=== PATIENT | female | born 1970 | race Caucasian/White ===

== ENCOUNTER 2016-12-31 00:06 | Emergency (ER) | payer OTHER ==
[2016-12-31] MEDS ORDERED: ONDANSETRON HCL 4 MG/2 ML VIAL IV PUSH ONE (00:30)
[2016-12-31] MEDS ORDERED: SODIUM CHLOR 0.9% 1000 ML INJ 1,000 ML IV ONE (00:30)
--- NOTE | 2016-12-31 00:32 | PD ---
HPI Chief Complaint: Alcohol/Drug Intoxication Time Seen by Provider: 00:18 Travel History International Travel<30 days: No Contact w/Intl Traveler<30days: No History of Present Illness HPI Patient comes in by EMS for evaluation after being found alcohol intoxication. Patient reportedly is attending a conference at a local hotel and was found by a friend to going in and out of consciousness. Patient denies any drug use or medical concerns at this time. Patient states that she just drank tonight. Patient denies a chest pain, shortness of breath, nausea, vomiting, abdominal pain, or headaches. Denies anything making this better or worse. Patient is obviously intoxicated thus making her poor historian at the moment. [facility] Past Medical History Depression: Yes ?: Unknown Social History Alcohol Use: Yes Tobacco Use: No Substance Use: No Allergies-Medications (Allergen,Severity, Reaction): Coded Allergies: No Known Allergies (Unverified , 12/31/16) Review of Systems ROS Limitations: Intoxication Except as stated in HPI: all other systems reviewed are Neg Physical Exam Exam Limitations: Intoxication Narrative GENERAL: Well-developed, well nourished, in no acute distress, and non-ill appearing. I'll call noted on breath. SKIN: Focused skin assessment warm and dry. HEAD: Atraumatic. Normocephalic. EYES: Pupils equal and round. EOMI. No scleral icterus. No injection or drainage. ENT: No nasal bleeding or discharge. Mucous membranes pink and moist. NECK: Trachea midline. No JVD. Supple. No nuclear rigidity. CARDIOVASCULAR: Regular rate and rhythm. No murmur appreciated. RESPIRATORY: No accessory muscle use. No respiratory distress. Clear to auscultation. Breath sounds equal bilaterally. MUSCULOSKELETAL: No obvious deformities. No clubbing. No cyanosis. No edema. Full range of motion. NEUROLOGICAL: Awake and alert. No obvious cranial nerve deficits. Motor grossly within normal limits. Normal speech. PSYCHIATRIC: Appropriate mood and affect. Data Data Last Documented VS Vital Signs Date Time Temp Pulse Resp B/P (MAP) Pulse Ox O2 Delivery O2 Flow Rate FiO2 12/31/16 04:52 12/31/16 04:36 96 Room Air 12/31/16 04:30 72 18 Orders Orders Complete Blood Count With Diff (12/31/16 00:19) Basic Metabolic Panel (Bmp) (12/31/16 00:19) Urinalysis - C+S If Indicated (12/31/16 00:19) Oximetry (12/31/16 00:19) Iv Access Insert/Monitor (12/31/16 00:) Ecg Monitoring (12/31/16 00:19) Drug Screen, Random Urine (12/31/16 00:19) Alcohol (Ethanol) (12/31/16 00:19) Ondansetron Inj (Zofran Inj) (12/31/16 00:30) Sodium Chlor 0.9% 1000 Ml Inj (Ns 1000 M (12/31/16 00:30) Ed Discharge Order (12/31/16 04:48) Labs Laboratory Tests Test 12/31/16 00:30 White Blood Count 7.4 TH/MM3 Red Blood Count 4.31 MIL/MM3 Hemoglobin 14.7 GM/DL Hematocrit 42.8 % Mean Corpuscular Volume 99.3 FL Mean Corpuscular Hemoglobin 34.1 PG Mean Corpuscular Hemoglobin Concent 34.4 % Red Cell Distribution Width 13.3 % Platelet Count 281 TH/MM3 Mean Platelet Volume 8.3 FL Neutrophils (%) (Auto) 60.2 % Lymphocytes (%) (Auto) 26.0 % Monocytes (%) (Auto) 10.5 % Eosinophils (%) (Auto) 2.3 % Basophils (%) (Auto) 1.0 % Neutrophils # (Auto) 4.5 TH/MM3 Lymphocytes # (Auto) 1.9 TH/MM3 Monocytes # (Auto) 0.8 TH/MM3 Eosinophils # (Auto) 0.2 TH/MM3 Basophils # (Auto) 0.1 TH/MM3 CBC Comment DIFF FINAL Differential Comment Urine Color COLORLESS Urine Turbidity CLEAR Urine pH 5.0 Urine Specific [place] 1.003 Urine Protein NEG mg/dL Urine Glucose (UA) NEG mg/dL Urine Ketones NEG mg/dL Urine Occult Blood NEG Urine Nitrite NEG Urine Bilirubin NEG Urine Urobilinogen LESS THAN 2.0 MG/DL Urine Leukocyte Esterase NEG Urine WBC LESS THAN 1 /hpf Urine Bacteria RARE /hpf Microscopic Urinalysis Comment CULT NOT INDICATED Blood Urea Nitrogen 11 MG/DL Creatinine 0.81 MG/DL Random Glucose 86 MG/DL Calcium Level 8.3 MG/DL Sodium Level 143 MEQ/L Potassium Level 3.9 MEQ/L Chloride Level 110 MEQ/L Carbon Dioxide Level 22.7 MEQ/L Anion Gap 10 MEQ/L Estimat Glomerular Filtration Rate 75 ML/MIN Urine Opiates Screen NEG Urine Barbiturates Screen NEG Urine Amphetamines Screen NEG Urine Benzodiazepines Screen NEG Urine Cocaine Screen NEG Urine Cannabinoids Screen NEG Ethyl Alcohol Level 290 MG/DL MDM Medical Decision Making Medical Screen Exam Complete: Yes Emergency Medical Condition: Yes Differential Diagnosis Alcohol intoxication, metabolic disturbance, UTI, substance abuse, dehydration, other Narrative Course Patient was seen and examined. Patient was placed on cardiac monitoring and IV was established. Laboratory studies were obtained and reviewed. Patient is given IV Zofran and a liter of fluid. Patient was monitored in the emergency department. After being monitored in the emergency department for over 4 hours patient is requesting to be discharged, so that she can go back to her hotel where she can finish sleeping off her alcohol. Patient in no obvious distress upon re-evaluation. Patient denies any medical concerns at this time. Patient is able to ambulate on her own without difficulty, answering questions appropriately, and is aware of her surroundings. Patient's friend is at her bedside and is calling a cab for them to go back to the hotel. Patient is stable to be discharged from the emergency department at this time. Patient ambulated without difficulty out of ED at discharge. Diagnosis Primary Impression: Alcohol intoxication Qualified Codes: F10.920 - Alcohol use, unspecified with intoxication, uncomplicated Patient Instructions: Alcohol Intoxication (ED), General Instructions Additional Instructions: Follow-up with your primary care physician as needed. Stop drinking. Return to the emergency department if symptoms get worse.s Disposition: 01 DISCHARGE HOME Condition: Stable Curt Shane Dec 31, 2016 00:32
[2016-12-31 00:54] LABS: AUTOMATED NEUTROPHIL # 4.5 TH/MM3 (1.8-7.7); BASOPHIL # 0.1 TH/MM3 (0-0.2); EOSINOPHIL # 0.2 TH/MM3 (0-0.4); EOSINOPHIL % 2.3 % (0.0-4.0); HEMATOCRIT 42.8 % (35.0-46.0); HEMO FLAGS DIFF FINAL; LYMPHOCYTE # 1.9 TH/MM3 (1.0-4.8); MEAN CELL VOLUME 99.3 FL (80.0-100.0); MEAN CORPUSCULAR HEMOGLOBIN 34.1 PG (27.0-34.0); MEAN CORPUSCULAR HGB CONC 34.4 % (32.0-36.0); MONO % 10.5 % (0.0-8.0); NEUT % 60.2 % (16.0-70.0); PLATELET COUNT 281 TH/MM3 (150-450); RED BLOOD COUNT 4.31 MIL/MM3 (4.00-5.30); RED CELL DISTRIBUTION WIDTH 13.3 % (11.6-17.2); WHITE BLOOD COUNT 7.4 TH/MM3 (4.0-11.0)
[2016-12-31 00:56] LABS: BACTERIA, URINE RARE /hpf; BLOOD, URINE NEG (NEG); COMMENT (UR) CULT NOT INDICATED; CULTURE IF INDICATED CULT NOT INDICATED; GLUCOSE,URINE NEG (NEG); KETONE, URINE NEG (NEG); NITRITE,URINE NEG (NEG); URINE COLOR COLORLESS (YELLW/STRAW)
[2016-12-31 01:10] LABS: BICARBONATE 22.7 MEQ/L (21.0-32.0); POTASSIUM 3.9 MEQ/L (3.5-5.1)
[2016-12-31 02:03] VITALS: BP 112/72; PULSE 82; RESP 16
[2016-12-31 04:30] VITALS: BP 103/62; PULSE 72; RESP 18; O2SAT 97
[2016-12-31 04:36] VITALS: O2SAT 96
== END 2016-12-31 04:53 | disposition home or self-care (01) ==
LOC: NEPD 00:06
DX: F10.129 Alcohol abuse with intoxication, unspecified (principal); F32.9 Major depressive disorder, single episode, unspecified
CPT/HCPCS: 80048; 80307; 81001; 85025; 96361; 96374; 99284; J2405; J7030